=== PATIENT | male | born 1950 | race Caucasian/White ===

== ENCOUNTER 2019-01-18 04:55 | Emergency (ER) | payer OTHER ==
[~2019-01-18] VITALS: Ht 170.2 cm; Wt 81.0 kg
[2019-01-18] MEDS ORDERED: LIDOCAINE HCL 1% 20ML VIAL (Pyxis) INJ INFIL ONE (07:30)
[2019-01-18] MEDS ORDERED: ONDANSETRON HCL 4MG/2ML INJ IV ONE ×2 (08:00→10:00)
[2019-01-18] MEDS ORDERED: MORPHINE SULFATE 4 MG/ML CPJ (NOT FOR IM USE) IV ONE ×2 (08:00→10:00)
[2019-01-18] MEDS ORDERED: KETOROLAC 15MG/ML VIAL IV ONE (10:45)
[2019-01-18 11:17] VITALS: BP 150/86
== END 2019-01-18 11:17 | disposition home or self-care (01) ==
LOC: ER 04:55
DX: S52.515A Nondisplaced fracture of left radial styloid process, initial encounter for closed fracture (principal); S52.615A Nondisplaced fracture of left ulna styloid process, initial encounter for closed fracture; I10 Essential (primary) hypertension; Z98.1 Arthrodesis status; F17.210 Nicotine dependence, cigarettes, uncomplicated; W01.0XXA Fall on same level from slipping, tripping and stumbling without subsequent striking against object, initial encounter; Y93.89 Activity, other specified; Y92.59 Other trade areas as the place of occurrence of the external cause
CPT/HCPCS: 25605; 73080; 73110; 73130; 96374; 96375; 99284; J1885; J2270; J2405; J3490